=== PATIENT | male | born 1960 | race Caucasian/White ===

== ENCOUNTER 2017-03-06 09:31 | Outpatient (CLI) | payer OTHER ==
--- NOTE | 2017-03-06 10:09 | RAD ---
CHEST 2 VIEWS: HISTORY: Kidney cancer. COMPARISON: 07/07/16. FINDINGS: Cardiac silhouette and pulmonary vasculature are unremarkable. Mediastinum is midline. There is no confluent airspace consolidation, pneumothorax, or pleural fluid evident. IMPRESSION: No active cardiopulmonary abnormalities are demonstrated. POS: [facility]
[2017-03-06 10:11] LABS: ALT (SGPT) 17 U/L (8-55); AST (SGOT) 19 U/L (5-34); Alkaline Phosphatase 71 U/L (40-150); Anion Gap 14 mmol/L (10-20); BUN (Urea Nitrogen) 8 mg/dL (8.4-25.7); Bilirubin, Total 1.1 mg/dL (0.2-1.2); Calc. Creatinine Clearance 0 mL/min (70-130); Calcium 9.3 mg/dL (7.8-10.44); Carbon Dioxide 23 mmol/L (22-29); Chloride 107 mmol/L (98-107); Estimated GFR-MDRD 59; Globulin 2.9 g/dL (2.4-3.5)
[2017-03-06 10:14] LABS: Bilirubin Negative (Negative); Blood, Urine Negative (Negative); Glucose, Urine (Dipstick) Negative (Negative); Ketone, Urine Negative (Negative); Nitrite Negative (Negative); Protein, Urine (Dipstick) Negative (Neg-Trace)
[2017-03-06 10:23] LABS: Bacteria/HPF None Seen HPF (None Seen); RBC/HPF 0-3 HPF (0-3); Squamous Epithelial None Seen HPF (0-3); WBC/HPF None Seen HPF (0-3)
--- NOTE | 2017-03-06 10:24 | CT ---
CT OF ABDOMEN AND PELVIS PERFORMED WITHOUT CONTRAST ENHANCEMENT: Date: 03/06/17 HISTORY: Right nephrectomy for renal cell carcinoma follow-up. COMPARISON: 05/19/16 CT study. FINDINGS: The lung bases are clear. The liver and spleen show no focal abnormalities. The spleen is somewhat elongated in appearance. It measures approximately 13.0 cm in length. Pancreas and gallbladder regions are unremarkable. Left adrenal gland and left kidney are normal in size and appearance. The right kidney has been remov ed. No signs of any soft tissue mass in the renal bed. No significant periaortic or mesenteric adenop athy. CT of pelvis was performed without contrast enhancement. There is no evidence of adenopathy, mass, or free fluid. Arthritic changes of the spine are noted. No lytic or blastic bony change. IMPRESSION: 1. Postop right nephrectomy change. 2. Borderline spleen size. POS: [facility]
== END 2017-03-06 09:32 | disposition home or self-care (01) ==
LOC: SCSCT 09:31
PROVIDERS: ATTEND Urology
DX: C64.1 Malignant neoplasm of right kidney, except renal pelvis (principal); Z98.890 Other specified postprocedural states; Z90.5 Acquired absence of kidney
CPT/HCPCS: 36415; 71020; 74176; 80053; 81001

== ENCOUNTER 2018-02-16 09:57 | Outpatient (CLI) | payer OTHER ==
[2018-02-16] MEDS ORDERED: ISOVUE-370 76%-LOCM 1 ML ONE (10:00)
--- NOTE | 2018-02-16 12:30 | RAD ---
PA AND LATERAL CHEST: HISTORY: Right renal cell carcinoma. COMPARISON: 03/06/2017 FINDINGS: The heart size is normal. The lungs are well expanded without focal areas of consolidation, pneumoth oraces, or pleural effusions. No acute osseous abnormalities are seen. IMPRESSION: No radiographic evidence of acute cardiopulmonary process. POS: [facility]
--- NOTE | 2018-02-16 12:44 | CT ---
CT ABDOMEN WITH AND WITHOUT IV CONTRAST: HISTORY: Right nephrectomy for renal cell carcinoma. Followup. COMPARISON: Noncontrast CT exam of 03/06/2017. FINDINGS: The lung bases are clear. A small, low density lesion in the subcapsular aspect of the right lateral liver lobe is stable since 05/19/2016. No new liver masses are seen. The pancreas and left adrenal gland are normal. The spleen measures 13 cm in length without mass. Changes of right nephrectomy a re again noted. The left kidney is normal. No calculi are seen in the left kidney or in the visuali zed portions of the left ureter. No hydroureteronephrosis is noted. Post contrast images demonstrat e no evidence of left renal mass. There is normal contrast excretion into the pelvicalyceal systems and the left ureter. No calcified gallstones are noted. No free air, free fluid, or lymphadenopathy is seen in the abdome n. There is no evidence of aneurysmal dilatation of the abdominal aorta. There are degenerative neela nges in the spine. No osteolytic or osteoblastic lesions are identified. IMPRESSION: Status post right nephrectomy. No evidence of tumor recurrence or metastatic disease. POS: [facility]
== END 2018-02-16 09:58 | disposition home or self-care (01) ==
LOC: BICCT 09:57
PROVIDERS: ATTEND Urology
DX: C64.1 Malignant neoplasm of right kidney, except renal pelvis (principal); Z90.5 Acquired absence of kidney
CPT/HCPCS: 71046; 74170; 82565

== ENCOUNTER 2019-02-21 07:50 | Outpatient (CLI) | payer OTHER ==
--- NOTE | 2019-02-21 10:09 | CT ---
CT ABDOMEN WITH AND WITHOUT IV CONTRAST: Date: 02/21/19 HISTORY: Renal cell carcinoma. Follow-up. Right nephrectomy. COMPARISON: 02/16/18 and 03/06/17. FINDINGS: The lung bases are clear. A small, low density lesion in the subcapsular aspect of the right lateral liver lobe is stable since 05/19/16. No new liver masses are identified. The pancreas and left adrena l gland are normal. The spleen measures 13.0 cm in length, without mass. Changes of right nephrectomy are again seen. The left kidney is normal. No calculi seen in the left k idney or in the visualized portions of the left ureter. No hydroureteronephrosis is noted. Postcontra st images demonstrate no evidence of left renal mass. There is normal contrast excretion into the pel vicaliceal systems and the left ureter. No calcified gallstones are seen. No free air, free fluid, or lymphadenopathy noted in the abdomen. T here is no evidence of aneurysmal dilatation of the abdominal aorta. There are degenerative changes i n the spine. No osteolytic or osteoblastic lesions are identified. IMPRESSION: Status post right nephrectomy. No evidence of tumor recurrence or metastatic disease. Stable exam. POS: [facility]
--- NOTE | 2019-02-21 10:18 | RAD ---
PA AND LATERAL CHEST: HISTORY: Renal cell carcinoma. COMPARISON: 02/16/2018 FINDINGS: The heart size is normal. The lungs are well expanded without focal areas of consolidation, pneumotho races, masses or pleural effusions. Bony structures are stable. IMPRESSION: Stable examination. No evidence of acute cardiopulmonary process. POS: [facility]
== END 2019-02-21 07:51 | disposition home or self-care (01) ==
LOC: BICCT 07:50
PROVIDERS: ATTEND Urology
DX: C64.9 Malignant neoplasm of unspecified kidney, except renal pelvis (principal); N28.1 Cyst of kidney, acquired; Z90.5 Acquired absence of kidney
CPT/HCPCS: 71046; 74170; 82565